=== PATIENT | female | born 1995 | race Caucasian/White ===

== ENCOUNTER 2022-06-25 16:02 | Emergency (ER) | payer MEDICAID, SELFPAY ==
[2022-06-25 16:04] VITALS: BP 121/80; PULSE 58; RESP 20; TEMP 36; O2SAT 100; BMI 29.2
--- NOTE | 2022-06-25 16:08 | ED.GENADULT ---
HPI - General Adult General Chief complaint: Skin/Abscess/Foreign Body <DELMER Pena - Last Filed: 07/08/22 09:10> Stated complaint: Lip Lac <DELMER Pena - Last Filed: 07/08/22 09:10> Time Seen by Provider: 06/25/22 18:48 <DELMER Pena - Last Filed: 07/08/22 09:10> Source: patient <Nalini Ram NP - Last Filed: 06/26/22 00:08> Mode of arrival: ambulatory <Nalini Ram NP - Last Filed: 06/26/22 00:08> Limitations: no limitations <Nalini Ram NP - Last Filed: 06/26/22 00:08> History of Present Illness HPI narrative: 26-year-old female presents with a superficial laceration to left lateral aspect of her lip after shaving her mustache. <Nalini Ram NP - Last Filed: 06/26/22 00:08> Onset (ago): hour(s) (Within the hour of arrival) <Nalini Ram NP - Last Filed: 06/26/22 00:08> Location: face <Nalini Ram NP - Last Filed: 06/26/22 00:08> Radiation: non-radiation <Nalini Ram NP - Last Filed: 06/26/22 00:08> Severity: mild <Nalini Ram NP - Last Filed: 06/26/22 00:08> Severity scale (1-10): 1 <Nalini Ram NP - Last Filed: 06/26/22 00:08> Quality: burning <Nalini Ram NP - Last Filed: 06/26/22 00:08> Pain Consistency: constant <Nalini Ram NP - Last Filed: 06/26/22 00:08> Relieving factors: none <Nalini Ram NP - Last Filed: 06/26/22 00:08> Associated symptoms: denies other symptoms <Nalini Ram NP - Last Filed: 06/26/22 00:08> Related Data Allergies/adverse reactions: Allergies Allergy/AdvReac Type Severity Reaction Status Date / Time shellfish derived Allergy Anaphylaxis Verified 06/25/22 18:19 <DELMER Pena - Last Filed: 07/08/22 09:10> Review of Systems Review of Systems: Constitutional: No Fever, No Chills Cardiovascular: No Chest Pain, No SOB Respiratory: No Cough, No Dyspnea Gastrointestinal: No Nausea, No Vomiting, No Diarrhea, No abdominal Pain Genitourinary: No Dysuria, No Hematuria Musculoskeletal:no joint pain, No Myalgias, No Joint Swelling Skin: Superficial facial laceration, No rash Neuro: No Weakness, No Numbness, No Paresthesias, No Dizziness, No Headache <Nalini Ram NP - Last Filed: 06/26/22 00:08> Yes all other systems are reviewed and are negative <Nalini Ram NP - Last Filed: 06/26/22 00:08> [facility] Past Medical History Attestation statement: The following information was validated with the patient. <Nalini Ram NP - Last Filed: 06/26/22 00:08> Source: old records reviewed <Nalini Ram NP - Last Filed: 06/26/22 00:08> Social History Social History: Social History Advance Directives: No Advance Directives Information Provided: No <DELMER Pena Last Filed: 07/08/22 09:10> Physical Exam ED Vital Signs: Vital Signs - 24 hr 06/25/22 16:04 Temperature 96.8 F Pulse Rate 58 Respiratory Rate 20 Blood Pressure 121/80 Pulse Oximetry 100 Oxygen Delivery Method Room Air BMI result Body Mass Index 29.2 <DELMER Pena - Last Filed: 07/08/22 09:10> Vital Signs - 24 hr 06/25/22 16:04 Temperature 96.8 F Pulse Rate 58 Respiratory Rate 20 Blood Pressure 121/80 Pulse Oximetry 100 Oxygen Delivery Method Room Air BMI result Body Mass Index 29.2 <CATIE Bueno Last Filed: 06/26/22 00:08> Appearance: Alert. Oriented X3. No acute distress. Eyes: Pupils equal, round and reactive to light. ENT: Pharynx normal. Neck: Normal inspection. Neck supple. CVS: Normal heart rate and rhythm. Pulses normal. Respiratory: No respiratory distress. Skin: 1 cm superficial laceration to the left lateral upper lip Extremities: Gait well-balanced well coordinated Neuro: No motor deficit. No sensory deficit. Cranial nerves 2-12 intact <Nalini Ram NP - Last Filed: 06/26/22 00:08> Course Course Course Narrative: RME: Above left upper lip laceration due to shaving mustache with razor blade. bleeding controlled. Superifical laceration. <DELMER Pena - Last Filed: 07/08/22 09:10> RME: Above left upper lip laceration due to shaving mustache with razor blade. bleeding controlled. Superifical laceration. 26-year-old female presents for superficial laceration to the left lateral upper lip. Wound is superficial, no need for sutures for Steri-Strips at this time. Will have patient placement derma to reduce scarring. Will update Tdap vaccine today. Patient verbalized understanding of and agrees plan care discharge home. Verbalized understanding of signs symptoms indicating need for emergent intervention. <Nalini Ram NP - Last Filed: 06/26/22 00:08> Medications Administered Discontinued Medications Generic Name Dose Route Start Last Admin Trade Name Freq PRN Reason Stop Dose Admin Diphtheria/Tetanus/Acell Pertussis 0.5 ml 06/25/22 18:54 06/25/22 18:59 Diphth,Pertus(Acell),Tet Adult 0.5 Ml Syringe IM 06/25/22 18:55 0.5 ml .ONCE ONE Administration <DELMER Pena - Last Filed: 07/08/22 09:10> Medications Administered Discontinued Medications Generic Name Dose Route Start Last Admin Trade Name Freq PRN Reason Stop Dose Admin Diphtheria/Tetanus/Acell Pertussis 0.5 ml 06/25/22 18:54 06/25/22 18:59 Diphth,Pertus(Acell),Tet Adult 0.5 Ml Syringe IM 06/25/22 18:55 0.5 ml .ONCE ONE Administration <Nalini Ram NP - Last Filed: 06/26/22 00:08> Medical Decision Making Differential Diagnosis Differential Diagnoses: The differential diagnosis associated with the presentation includes <Nalini Ram NP - Last Filed: 06/26/22 00:08> Abrasion, laceration <Nalini Ram NP - Last Filed: 06/26/22 00:08> Admission/Observation Consideration of admission/observation: Escalation of care including admission/observation considered <Nalini Ram NP - Last Filed: 06/26/22 00:08> Admission not considered <Nalini Ram NP - Last Filed: 06/26/22 00:08> Discharge Plan Discharge Clinical Impression: Superficial laceration <DELMER Pena - Last Filed: 07/08/22 09:10> Patient Disposition: Home, Self-Care <DELMER Pena - Last Filed: 07/08/22 09:10> Instructions: Facial Laceration (ED) <DELMER Pena - Last Filed: 07/08/22 09:10> Additional Instructions: You were evaluated for superficial laceration. This laceration is too small sutures. We updated her Tdap vaccine today. Consider using Mederma scar ointment to help reduce scarring. Thank you for choosing this emergency department for evaluation. Please follow-up with primary care physician as needed. Return to the emergency department for any new, concerning, or worsening symptoms. <DELMER Pena - Last Filed: 07/08/22 09:10> Stand Alone Forms: Work/School Release <DELMER Pena - Last Filed: 07/08/22 09:10> Interventions: ED Discharge Assessment Last Done: 06/25/22 19:19 <DELMER Pena - Last Filed: 07/08/22 09:10> Discharge Date/Time: 06/25/22 19:20 <DELMER Pena - Last Filed: 07/08/22 09:10>
== END 2022-06-25 19:20 | disposition home or self-care (01) ==
PROVIDERS: Emergency Provider Internal Medicine
DX: S01.511A Laceration without foreign body of lip, initial encounter (principal); W27.8XXA Contact with other nonpowered hand tool, initial encounter; Y93.E8 Activity, other personal hygiene; Y92.012 Bathroom of single-family (private) house as the place of occurrence of the external cause; Y99.9 Unspecified external cause status; Z23 Encounter for immunization
CPT/HCPCS: 90471; 90715; 99282; 99284